=== PATIENT | female | born 2000 | race Caucasian/White ===

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

== ENCOUNTER 2021-05-28 09:36 | Emergency (ER) | payer MEDICAID ==
[~2021-05-28 09:36] MED LIST changes: +TRAMADOL HCL50 MG PO
== END 2021-05-28 10:23 | disposition left against medical advice (07) | DRG 951 ==
LOC: ED 09:36 → LWOBS 10:22
DX: Z53.21 Procedure and treatment not carried out due to patient leaving prior to being seen by health care provider (principal)

== ENCOUNTER 2021-09-27 13:57 | Emergency (ER) | payer OTHER, MEDICAID ==
[2021-09-27] VITALS (11 sets, daily range): BP systolic 109–130; BP diastolic 62–86
[~2021-09-27] VITALS: Ht 154.9 cm; Wt 54.4 kg
[2021-09-27] MEDS ORDERED: MARIJUANA (14:19)
[2021-09-27 14:43] LABS: HEMATOCRIT 41.8 % (37.0-47.0); HEMOGLOBIN 13.8 g/dl (12.0-16.0); IMMATURE GRANULOCYTES 0.4 % (0.0-5.0); MEAN CELL VOLUME 90.5 fL CALC (80.0-100.0); MEAN CORPUSCULAR HGB 29.9 pG CALC (26.0-32.0); NEUT# 4.66 thou/uL (2.00-7.15); RED BLOOD COUNT 4.62 mill/uL (4.20-5.60); RED CELL DISTRI WIDTH 12.6 % (11.5-15.5)
[2021-09-27 14:59] LABS: ALBUMIN 4.4 g/dL (3.2-5.0); ALKALINE PHOSPHATASE 79 u/l (38-126); BUN 6 mg/dL (8-21); BUN/CREATININE RATIO 10 (12-20 (CALC)); CHLORIDE 108 mmol/l (95-108); CREATININE 0.6 mg/dL (0.5-1.0); GFR FOR AFR.AMER. > 60 ML/MIN (>=60 (CALC)); GFR OTHER RACES > 60 ML/MIN (>=60 (CALC)); POTASSIUM 3.7 mmol/l (3.5-5.1); SGOT/AST 17 u/l (14-36); SODIUM 140 mmol/l (137-146); TOTAL PROTEIN 7.6 g/dL (6.3-8.2)
[2021-09-27 15:09] LABS: ANION GAP 11 (6-22 (CALC)); BILIRUBIN, TOTAL 0.3 mg/dL (0.0-1.4); CARBON DIOXIDE 25 mmol/l (22-30)
[2021-09-27 15:25] LABS: URINE BILIRUBIN - DIPSTICK NEGATIVE (NEGATIVE); URINE BLOOD DIPSTICK MODERATE (NEGATIVE); URINE COLOR YELLOW; URINE GLUCOSE - DIPSTICK NEGATIVE (NEGATIVE); URINE KETONE NEGATIVE (NEGATIVE); URINE LEUK ESTERASE NEGATIVE (NEGATIVE); URINE PROTEIN - DIPSTICK 30 mg/dL (NEG-TRACE); URINE SPECIFIC GRAVITY 1.025; URINE UROBILINOGEN - DIPSTICK 0.2 E.U./dL (0.2)
[2021-09-27 15:26] LABS: URINE NITRITE - DIPSTICK NEGATIVE (Negative)
[2021-09-27 15:38] LABS: URINE SQUAMOUS EPITHELIAL CELL MANY EPI/hpf (0-FEW); URINE WBC 0-2 WBC/hpf (0-5)
== END 2021-09-27 17:31 | disposition home or self-care (01) | DRG 605 ==
LOC: ED 13:57
PROVIDERS: Family Medicine
DX: S60.221A Contusion of right hand, initial encounter (principal); S60.211A Contusion of right wrist, initial encounter; S30.1XXA Contusion of abdominal wall, initial encounter; S60.811A Abrasion of right wrist, initial encounter; V43.52XA Car driver injured in collision with other type car in traffic accident, initial encounter
CPT/HCPCS: Q9967

== ENCOUNTER 2022-08-01 20:11 | Emergency (ER) | payer MEDICAID ==
[~2022-08-01] VITALS: Ht 154.9 cm; Wt 54.0 kg
[~2022-08-01 20:11] MED LIST changes: +MARIJUANA
[2022-08-01 22:41] LABS: URINE BILIRUBIN - DIPSTICK NEGATIVE (NEGATIVE); URINE BLOOD DIPSTICK NEGATIVE (NEGATIVE); URINE COLOR YELLOW; URINE GLUCOSE - DIPSTICK NEGATIVE (NEGATIVE); URINE KETONE 40 mg/dL (NEGATIVE); URINE PH 5.5 (4.5-8.0); URINE PROTEIN - DIPSTICK NEGATIVE (NEG-TRACE); URINE SPECIFIC GRAVITY 1.025; URINE UROBILINOGEN - DIPSTICK 0.2 E.U./dL (0.2)
[2022-08-01 22:42] LABS: URINE LEUK ESTERASE SMALL (NEGATIVE); URINE NITRITE - DIPSTICK NEGATIVE (Negative)
[2022-08-01 22:46] LABS: URINE BACTERIA MANY hpf; URINE SQUAMOUS EPITHELIAL CELL MANY EPI/hpf (0-FEW)
[2022-08-01] MEDS ORDERED: KEFLEX500 MG PO (23:04)
[2022-08-01 23:21] VITALS: BP 117/81
== END 2022-08-01 23:22 | disposition home or self-care (01) ==
LOC: ED 20:11
PROVIDERS: Emergency Medicine
DX: O99.519 Diseases of the respiratory system complicating pregnancy, unspecified trimester (principal); J06.9 Acute upper respiratory infection, unspecified; O23.40 Unspecified infection of urinary tract in pregnancy, unspecified trimester; N39.0 Urinary tract infection, site not specified; Z3A.00 Weeks of gestation of pregnancy not specified; F32.A Depression, unspecified; F41.9 Anxiety disorder, unspecified; O99.340 Other mental disorders complicating pregnancy, unspecified trimester; Z20.822 Contact with and (suspected) exposure to COVID-19

== ENCOUNTER 2022-08-04 18:25 | Emergency (ER) | payer MEDICAID ==
[~2022-08-04] VITALS: Ht 154.9 cm; Wt 52.1 kg
[~2022-08-04 18:25] MED LIST changes: +KEFLEX500 MG PO
[2022-08-04 18:31] VITALS: BP 103/70
[2022-08-04 19:48] VITALS: BP 112/68
== END 2022-08-04 20:39 | disposition home or self-care (01) ==
LOC: ED 18:25
DX: Z32.02 Encounter for pregnancy test, result negative (principal)

== ENCOUNTER 2022-09-27 18:57 | Emergency (ER) | payer MEDICAID ==
[~2022-09-27] VITALS: Ht 154.9 cm; Wt 56.8 kg
[2022-09-27 19:44] VITALS: BP 124/60
[2022-09-27 19:45] VITALS: BP 108/69
[2022-09-27 20:00] VITALS: BP 116/66
[2022-09-27 20:15] VITALS: BP 115/66
[2022-09-27] MEDS ORDERED: AMOX/K CLAV875 M1 PO (20:17)
[2022-09-27 20:30] VITALS: BP 108/78
[2022-09-27 20:31] VITALS: BP 108/78
== END 2022-09-27 20:45 | disposition home or self-care (01) ==
LOC: ED 18:57
DX: S61.451A Open bite of right hand, initial encounter (principal); W54.0XXA Bitten by dog, initial encounter; S60.221A Contusion of right hand, initial encounter; W22.09XA Striking against other stationary object, initial encounter; F41.9 Anxiety disorder, unspecified; F32.A Depression, unspecified